=== PATIENT | female | born 1975 | race Caucasian/White ===

== ENCOUNTER 2021-12-31 02:27 | Emergency (ER) | payer OTHER, MEDICAID ==
[~2021-12-31] VITALS: Ht 170.2 cm; Wt 127.0 kg
--- NOTE | 2021-12-31 02:35 | NUR ---
Pt to ER via EMS from [facility] facility on a 5250 hold s/p ground level fall and head trauma. Pt denies LOC. Pt denies dizziness or n/v at this time. Sitter with patient from facility at this time. Respirations even and unlabored. Normal skin color for ethnicity. Pt answers all questions appopriately.
[2021-12-31 02:37] VITALS: BP_SYST 140
[2021-12-31] MEDS ORDERED: MECLIZINE HCL 25 MG TABLET (ANITVERT) PO ONE (04:15)
[2021-12-31 04:30] LABS: BASOPHILS # (AUTO) 0.1 K/uL (0.0-0.2); BASOPHILS % (AUTO) 1.1 % (0.0-2.0); EOSINOPHILS # (AUTO) 0.1 K/uL (0.0-0.4); EOSINOPHILS % (AUTO) 1.3 % (0.0-4.0); HEMATOCRIT 31.9 % (36-48); HEMOGLOBIN 10.4 g/dL (12.0-16.0); LYMPHOCYTES # (AUTO) 1.5 K/uL (1.0-5.5); LYMPHOCYTES % (AUTO) 24.3 % (20.5-51.5); MEAN CORPUSCULAR HEMOGLOBIN 31 pg (27-31); MEAN CORPUSCULAR HGB CONC 33 % (32-36); MEAN CORPUSCULAR VOLUME 95 fL (79.0-98.0); MONOCYTES # (AUTO) 0.4 K/uL (0.0-1.0); MONOCYTES % (AUTO) 6.1 % (1.7-9.3); NEUTROPHILS # (AUTO) 4.1 K/uL (1.8-7.7); NEUTROPHILS % (AUTO) 67.2 % (40.0-70.0); PLATELET COUNT (AUTO) 276 K/uL (130-430); RED BLOOD CELL COUNT(AUTO) 3.35 MIL/uL (4.2-6.2); RED CELL DISTRIBUTION WIDTH 17.3 % (9.0-15.0); WHITE BLOOD COUNT (AUTO) 6.1 K/uL (4.8-10.8)
[2021-12-31 04:40] LABS: ANION GAP 7 (5-15); CALCIUM 8.8 mg/dL (8.4-11.0); CHLORIDE 99 mmol/L (98-107); CREATININE 0.73 mg/dL (0.55-1.30); GLUCOSE 101 mg/dL (70-99); POTASSIUM 3.4 mmol/L (3.5-5.1); SODIUM SERUM 137 mmol/L (136-145); UREA NITROGEN, BLOOD 8 mg/dL (8-21)
[2021-12-31 04:54] LABS: ALANINE AMINOTRANSFERASE 13 U/L (12-78); ALBUMIN 2.9 g/dL (3.4-4.8); ASPARTATE AMINOTRANSFERASE 22 U/L (10-37); HCG,QUANTITATIVE 0 mIU/ML (0-6); TOTAL BILIRUBIN 0.3 mg/dL (0.0-1.0)
[2021-12-31 04:55] LABS: GFR AFRICAN AMERICAN 110 mL/min (>90)
[2021-12-31] MEDS ORDERED: ACETAMINOPHEN 325 MG TABLET PO ONE (08:00)
[2021-12-31] MEDS ORDERED: MECLIZINE HCL 25 MG TABLET (ANITVERT) ONE (08:13)
--- NOTE | 2021-12-31 08:26 | NUR ---
PATIENT AWAITING TRANSPORTATION- [facility] ETA 1 PM
--- NOTE | 2021-12-31 08:31 | NUR ---
Faith, [facility], called back and updated that there was a hand picker that was canceled and offered updated eta [id number]. accepted updated eta. RN and notified.
--- NOTE | 2021-12-31 08:31 | NUR ---
NEW TRANSPORTATION ETA IN 45 MINS
[2021-12-31 09:29] VITALS: BP_SYST 140
--- NOTE | 2021-12-31 09:30 | NUR ---
Patient given written and verbal discharge instructions and verbalizes understanding. ER MD discussed with patient the results and treatment provided. Patient in stable condition. ID arm band removed. no Rx given. Patient educated on pain management and to follow up with PMD. Pain Scale 0. Opportunity for questions provided and answered. Medication side effect fact sheet provided.
== END 2021-12-31 09:30 ==
LOC: SED 02:27
DX: S09.90XA Unspecified injury of head, initial encounter (principal); R42 Dizziness and giddiness; W01.0XXA Fall on same level from slipping, tripping and stumbling without subsequent striking against object, initial encounter; Y93.89 Activity, other specified; Y92.89 Other specified places as the place of occurrence of the external cause; Y99.8 Other external cause status
CPT/HCPCS: 99285; 70450; 71045; 80053; 84702; 83880; 85025; 84484; 36415; 93005; 76376; J8597